=== PATIENT | female | born 1950 | race Caucasian/White ===

== ENCOUNTER 2017-10-17 09:52 | Emergency (ER) | payer MEDICARE, OTHER ==
[2017-10-17] MEDS: ONDANSETRON (ODT) 4 MG TAB ODT (10:35)
[2017-10-17] MEDS: DIAZEPAM 5 MG TAB PO (10:35)
[2017-10-17] MEDS: HYDROmorphONE 2 MG/ML SYG IM (10:37)
== END 2017-10-17 12:21 | disposition home or self-care (01) ==
LOC: FTE 09:52
DX: S73.102A Unspecified sprain of left hip, initial encounter (principal); M54.16 Radiculopathy, lumbar region; W18.2XXA Fall in (into) shower or empty bathtub, initial encounter; Y92.9 Unspecified place or not applicable
CPT/HCPCS: 72100; 73502; 73510; 96372; 99284-25